=== PATIENT | male | born 1985 | race Caucasian/White ===

== ENCOUNTER 2017-09-17 10:58 | Emergency (ER) | payer MEDICAID ==
[~2017-09-17] VITALS: Ht 165.1 cm; Wt 123.0 kg
[~2017-09-17 10:58] MED LIST: MELO-100 PO; NITR100C6 PO; NO HOME MEDS; PANT-47 PO
[2017-09-17 11:10] VITALS: BP 134/91
[2017-09-17] MEDS: ibuprofen tablet 400 MG TABLET PO ONE (12:07)
[2017-09-17] MEDS: HYDROcodone/acetaminophen 5mg/325mg tablet PO ONE (12:08)
[2017-09-17] MEDS: ipratropium/albuterol 3ml nebule NEB ONE (12:24)
[2017-09-17] MEDS ORDERED: AZIT-57 PO (12:46)
[2017-09-17] MEDS ORDERED: DICL100G15 TOP (12:46)
[2017-09-17] MEDS ORDERED: CYCL-1 PO (12:46)
[2017-09-17] MEDS ORDERED: PRED50TA PO (12:46)
== END 2017-09-17 12:53 | disposition home or self-care (01) ==
LOC: ER 10:59
DX: S29.012A Strain of muscle and tendon of back wall of thorax, initial encounter (principal); J45.909 Unspecified asthma, uncomplicated; K21.9 Gastro-esophageal reflux disease without esophagitis; Z98.890 Other specified postprocedural states; F17.200 Nicotine dependence, unspecified, uncomplicated; X58.XXXA Exposure to other specified factors, initial encounter; Y93.89 Activity, other specified; Y92.89 Other specified places as the place of occurrence of the external cause; Y99.8 Other external cause status
CPT/HCPCS: 71100; 94640; 94760; 99284

== ENCOUNTER 2018-12-17 22:37 | Emergency (ER) | payer MEDICAID, OTHER ==
[~2018-12-17] VITALS: Ht 165.1 cm; Wt 132.0 kg
[~2018-12-17 22:37] MED LIST changes: +CYCL-1 PO; +DICL100G15 TOP; +PRED50TA PO
[2018-12-17] MEDS ORDERED: methylPREDNISolone sod succ 125mg/2ml vial IV ONE (23:00)
[2018-12-17] MEDS ORDERED: ipratropium/albuterol 3ml nebule NEB ONE (23:00)
[2018-12-17] MEDS ORDERED: normal saline 1000ml 1,000 ML IV ONE (23:00)
[2018-12-17] MEDS ORDERED: LORazepam 2 mg/ml vial IV ONE (23:10)
[2018-12-17] MEDS ORDERED: aspirin 325mg tablet PO ONE (23:10)
[2018-12-17 23:18] LABS: BASOPHILS # (AUTO) 0.1 X10'3 (0-0.2); BASOPHILS % (AUTO) 0.6 % (0-1); EOSINOPHILS # (AUTO) 0.2 X10'3 (0-0.9); EOSINOPHILS % (AUTO) 1.4 % (0-6); HEMATOCRIT 49.6 % (42.0-52.0); HEMOGLOBIN 17.1 g/dl (14.0-17.9); LYMPHOCYTES % (AUTO) 25.5 % (21-51); MEAN CORPUSCULAR HEMOGLOBIN 33.7 PG (27.0-31.0); MEAN CORPUSCULAR HGB CONC 34.5 g/dL (33.0-36.5); MEAN CORPUSCULAR VOLUME 97.5 FL (78-98); MEAN PLATELET VOLUME 7.4 FL (7.4-10.4); MONOCYTES # (AUTO) 0.9 X10'3 (0-0.9); MONOCYTES % (AUTO) 7.3 % (2-12); NEUTROPHILS # (AUTO) 7.7 X10'3 (1.8-7.7); NEUTROPHILS % (AUTO) 65.2 % (42-75); PLATELET COUNT 318 X10'3 (140-440); RED BLOOD COUNT 5.09 X10'6 (4.70-6.10); RED CELL DISTRIBUTION WIDTH 13.7 % (11.5-14.5); WHITE BLOOD COUNT 11.9 X10'3 (4.5-11.0)
[2018-12-17 23:37] LABS: ALANINE AMINOTRANSFERASE 48 U/L (12-78); ALBUMIN 3.7 G/DL (3.4-5.0); ALBUMIN/GLOBULIN RATIO 0.9 (1.1-1.5); ALKALINE PHOSPHATASE 108 IU/L (46-116); ANION GAP 13 (8-16); ASPARTATE AMINO TRANSFERASE 39 U/L (10-37); BILIRUBIN,TOTAL 0.4 MG/DL (0.1-1.0); BLOOD UREA NITROGEN 12 MG/DL (7-18); BUN/CREATININE RATIO 10.2 (5.4-32.0); CALCIUM 9.3 MG/DL (8.5-10.1); CHLORIDE 103 MMOL/L (99-107); CREATININE 1.18 MG/DL (0.60-1.10); GLUCOSE 103 MG/DL (70-104); SODIUM 142 MMOL/L (135-145); TOTAL CARBON DIOXIDE 25.7 MMOL/L (24-32); TOTAL PROTEIN 7.8 G/DL (6.4-8.2); eGFR 72 ML/MIN
[2018-12-17 23:38] LABS: PARTIAL THROMBOPLASTIN TIME 28 SECONDS (22-32)
[2018-12-18] MEDS ORDERED: ATRIN INH (00:09)
[2018-12-18] MEDS ORDERED: ALBU8.5H8 INH (00:09)
[2018-12-18 00:45] VITALS: BP 122/71
== END 2018-12-18 00:47 | disposition home or self-care (01) ==
LOC: ER 22:38
DX: J45.901 Unspecified asthma with (acute) exacerbation (principal); R42 Dizziness and giddiness; K21.9 Gastro-esophageal reflux disease without esophagitis; Z90.49 Acquired absence of other specified parts of digestive tract; Z79.899 Other long term (current) drug therapy
CPT/HCPCS: 36415; 71045; 80053; 84484; 85025; 85610; 85730; 93005; 94640; 94760; 96361; 96374; 96375; 99284; J2060; J2930; J7030

== ENCOUNTER 2020-08-06 10:37 | Inpatient (IN) | payer MEDICAID ==
[~2020-08-06] VITALS: Ht 160 cm; Wt 164.2 kg
[~2020-08-06 10:37] MED LIST changes: +ALBU8.5H8 INH; +ATRIN INH; +IPRA3AMP31 IH
[2020-08-06 11:21] LABS: BASOPHILS % (AUTO) 0.3 % (0-1); EOSINOPHILS % (AUTO) 0.4 % (0-6); HEMATOCRIT 50.4 % (42.0-52.0); LYMPHOCYTES # (AUTO) 1.2 X10'3 (1.1-4.8); LYMPHOCYTES % (AUTO) 17.1 % (21-51); MEAN CORPUSCULAR HEMOGLOBIN 34.6 PG (27.0-31.0); MEAN CORPUSCULAR HGB CONC 33.6 g/dL (33.0-36.5); MEAN CORPUSCULAR VOLUME 102.7 FL (78-98); MONOCYTES # (AUTO) 0.7 X10'3 (0-0.9); NEUTROPHILS # (AUTO) 4.9 X10'3 (1.8-7.7); NEUTROPHILS % (AUTO) 72.2 % (42-75); PLATELET COUNT 251 X10'3 (140-440); RED BLOOD COUNT 4.91 X10'6 (4.70-6.10); WHITE BLOOD COUNT 6.8 X10'3 (4.5-11.0)
--- NOTE | 2020-08-06 11:36 | NUR ---
Pt reports having a negative COVID test on 07/31, no changes to his sx's since then
[2020-08-06 11:38] LABS: ALANINE AMINOTRANSFERASE 61 U/L (12-78); ALBUMIN 3.4 G/DL (3.4-5.0); ALBUMIN/GLOBULIN RATIO 0.8 (1.1-1.5); ALKALINE PHOSPHATASE 115 IU/L (46-116); ANION GAP 6 (8-16); ASPARTATE AMINO TRANSFERASE 74 U/L (10-37); BILIRUBIN,TOTAL 0.4 MG/DL (0.1-1.0); BLOOD UREA NITROGEN 9 MG/DL (7-18); BUN/CREATININE RATIO 8.7 (5.4-32.0); CALCIUM 8.7 MG/DL (8.5-10.1); CHLORIDE 104 MMOL/L (99-107); CREATININE 1.04 MG/DL (0.60-1.10); GLUCOSE 99 MG/DL (70-104); POTASSIUM 4.3 MMOL/L (3.5-5.1); SODIUM 148 MMOL/L (135-145); TOTAL PROTEIN 7.5 G/DL (6.4-8.2); eGFR 82 ML/MIN
[2020-08-06] MEDS ORDERED: albuterol 2.5 MG/3 ML nebule NEB ONE (11:40)
[2020-08-06] MEDS ORDERED: methylPREDNISolone sod succ 125mg/2ml vial IV ONE (11:40)
[2020-08-06 12:44] LABS: CLARITY,URINE CLEAR (Clear); COLOR,URINE YELLOW (Yellow); GLUCOSE, URINE NEGATIVE (Neg); KETONES,URINE NEGATIVE (Neg); LEUKOCYTE ESTERASE ,URINE NEGATIVE (Neg); NITRITES, URINE NEGATIVE (Neg); OCCULT BLOOD,URINE TRACE-LYSED (Neg); PH,URINE 6.5 (4.8-8.0); PROTEIN,URINE >=300 mg/dl (Neg)
--- NOTE | 2020-08-06 12:49 | NUR ---
PT BACK TO ROOM [address] SCAN. NOTED PRIOR TO CT SCAN, PT'S SPO2 WHILE SLEEPING WAS 77-85% ON RA. PT WAS AWAKENED, SAT AT SIDE OF BED TO GIVE URINE SAMPLE, SPO2 TO 93%. PT STATES THAT HE WEARS CPAP AT HOME. PT ALSO C/O BACK PAIN, PA NOTIFIED OF ALL THE ABOVE.
[2020-08-06 12:52] LABS: D-DIMER 0.35 MG/L FEU (0-0.50)
[2020-08-06] MEDS ORDERED: HYDROcodone/acetaminophen 5mg/325mg tablet PO ONE (12:55)
[2020-08-06 13:01] LABS: URINE AMPHETAMINE SCREEN NEGATIVE (Neg); URINE BARBITUATE SCREEN NEGATIVE (Neg); URINE BENZODIAZEPINES SCREEN NEGATIVE (Neg); URINE CANNABINOID SCREEN POSITIVE (Neg); URINE COCAINE SCREEN NEGATIVE (Neg); URINE METHADONE SCREEN NEGATIVE (Neg); URINE OPIATE SCREEN NEGATIVE (Neg); URINE PHENCYCLIDINE SCREEN NEGATIVE (Neg)
[2020-08-06 13:26] LABS: UA COLLECTION TYPE CLN CATCH MIDSTREAM
[2020-08-06 13:27] LABS: HYALINE CASTS 0-3 /LPF (NEGATIVE); MUCUS STRANDS MANY /LPF (Neg); SQUAMOUS EPITHELIAL CELL,UR FEW /LPF (FEW)
[2020-08-06 13:29] LABS: BACTERIA,URINE FEW /HPF (Neg); CAL OXALATE CRYSTALS FEW /HPF (NEGATIVE); RBC,URINE 0-2 /HPF (0-2); TRANSITIONAL EPI CELLS,URINE FEW /HPF; WBC,URINE 0-4 /HPF (0-4)
[2020-08-06] MEDS ORDERED: iohexol 350MG/ML 100ml bottle IV ONE (13:40)
[2020-08-06 14:01] LABS: ABG BASE EXCESS 4.1 mmol/L (-2.0-2.0); ABG HCO3 37.5 mmol/L (22.0-26.0); ABG PCO2 (T) 101.5 mmHg (35.0-48.0); ABG PO2 (T) 270.5 mmHg (75.0-100.0); ALLEN'S TEST POSITIVE; FLOW 13 L/min; FMetHb 0.3 % (0.0-1.5); FO2Hb 93.8 % (94-97); TOTAL HEMOGLOBIN 18.2 G/dl (14.0-18.0)
--- NOTE | 2020-08-06 14:43 | NUR ---
RT pg'ed to help transport pt to CT on bipap
[2020-08-06] MEDS ORDERED: furosemide 10 MG/1 ML 10ml inj IV ONE (15:05)
[2020-08-06 15:25] LABS: ABG BASE EXCESS 3.8 mmol/L (-2.0-2.0); ABG HCO3 36.2 mmol/L (22.0-26.0); ABG OXYGEN SATURATION 97.4 % (94-97); ABG PCO2 (T) 93.2 mmHg (35.0-48.0); ABG PO2 (T) 115.3 mmHg (75.0-100.0); ALLEN'S TEST POSITIVE; FCOHb 4.8 % (0.0-3.9); FMetHb 0.3 % (0.0-1.5); FO2Hb 92.4 % (94-97); RESPIRATORY RATE 22 b/min; TOTAL HEMOGLOBIN 17.7 G/dl (14.0-18.0)
--- NOTE | 2020-08-06 16:37 | NUR ---
PA notified of HR and BP
[2020-08-06] MEDS ORDERED: nitroGLYCERIN 0.4mg SUBLingual tab SL STA (16:45)
[2020-08-06] MEDS ORDERED: ALBU8HFA PO (17:11)
--- NOTE | 2020-08-06 17:48 | NUR ---
Family (mom and dad) updated per pt [phone]
[2020-08-06] MEDS ORDERED: acetaminophen 325mg tablet PO PRN ×2 (18:30)
[2020-08-06] MEDS ORDERED: magnesium 2GM in 50ml NS 50 ML IV PRN (18:30)
[2020-08-06] MEDS ORDERED: albuterol 2.5 MG/3 ML nebule NEB PRN ×2 (18:30)
[2020-08-06] MEDS ORDERED: ondansetron/PF 4mg/2ml inj IV PRN (18:30)
[2020-08-06] MEDS ORDERED: magnesium Cl slow-release 64mg tablet PO PRN (18:30)
[2020-08-06] MEDS ORDERED: magnesium 4gm in 100ml NS 100 ML IV PRN (18:30)
[2020-08-06] MEDS ORDERED: potassium Cl 20 mEq SR tablet PO PRN ×2 (18:30)
[2020-08-06] MEDS ORDERED: potassium Cl 40MEQ/1/2NS 520ml 520 ML IV PRN ×2 (18:30)
[2020-08-06] MEDS: K and/or MAG REPLACEMENT MC SCH (20:00)
[2020-08-06] MEDS: heparin, porcine 5000 units/ml vial SQ SCH (20:48)
[2020-08-06] MEDS: docusate sod 100mg capsule PO SCH (20:48)
[2020-08-06] MEDS ORDERED: thiamine 100mg/ml 2ml inj. IV ONE (22:35)
[2020-08-06] MEDS ORDERED: LORazepam 2 mg/ml vial IV PRN ×2 (22:35)
[2020-08-06] MEDS ORDERED: dextrose 50%-water 50ml dispensing syringe IV PRN (22:35)
[2020-08-06] MEDS ORDERED: haloperidol lactate 5mg/ml inj IM PRN (22:35)
--- NOTE | 2020-08-06 22:36 | NUR ---
RT AT BEDSIDE TO DO ABG
--- NOTE | 2020-08-06 22:45 | NUR ---
PT REPORTS DRINKING 1/5 WHISKEY PER DAY, HAS BEEN SLIGHTLY ANXIOUS. DR. CINTRON NOTIFIED. ORDERS FOR ETOH PROT GIVEN. PT MEDICATED PER PROTOCOL.
[2020-08-06 22:51] LABS: ABG BASE EXCESS 9.3 mmol/L (-2.0-2.0); ABG HCO3 37.9 mmol/L (22.0-26.0); ABG OXYGEN SATURATION 99.2 % (94-97); ABG PCO2 (T) 66.5 mmHg (35.0-48.0); ABG PO2 (T) 193.3 mmHg (75.0-100.0); ALLEN'S TEST POSITIVE; FCOHb 2.2 % (0.0-3.9); FMetHb 0.4 % (0.0-1.5); FO2Hb 96.6 % (94-97); RESPIRATORY RATE 24 b/min; TOTAL HEMOGLOBIN 17.5 G/dl (14.0-18.0)
--- NOTE | 2020-08-06 23:08 | NUR ---
Patient in room 3023A. I have received report from DIONISIO Buckley and had the opportunity to ask questions and assume patient care. Patient transferred by shawna from the ED. Ambulated to bed self. On 2L NC. Will continue to monitor throughout shift.
[2020-08-06 23:10] VITALS: BP 141/106
[2020-08-07 02:00] VITALS: BP 140/90
--- NOTE | 2020-08-07 04:01 | NUR ---
Unable to dart. Patient on bipap all night.
[2020-08-07 06:30] LABS: BASOPHILS % (AUTO) 0.1 % (0-1); EOSINOPHILS % (AUTO) 0 % (0-6); HEMATOCRIT 49.6 % (42.0-52.0); HEMOGLOBIN 16.6 g/dl (14.0-17.9); LYMPHOCYTES # (AUTO) 0.4 X10'3 (1.1-4.8); LYMPHOCYTES % (AUTO) 5.6 % (21-51); MEAN CORPUSCULAR HEMOGLOBIN 34.6 PG (27.0-31.0); MEAN CORPUSCULAR HGB CONC 33.4 g/dL (33.0-36.5); MEAN CORPUSCULAR VOLUME 103.6 FL (78-98); MEAN PLATELET VOLUME 7.3 FL (7.4-10.4); MONOCYTES # (AUTO) 0.7 X10'3 (0-0.9); MONOCYTES % (AUTO) 9.1 % (2-12); NEUTROPHILS # (AUTO) 6.6 X10'3 (1.8-7.7); NEUTROPHILS % (AUTO) 85.2 % (42-75); PLATELET COUNT 242 X10'3 (140-440); RED BLOOD COUNT 4.79 X10'6 (4.70-6.10); RED CELL DISTRIBUTION WIDTH 14.5 % (11.5-14.5); WHITE BLOOD COUNT 7.7 X10'3 (4.5-11.0)
--- NOTE | 2020-08-07 06:42 | NUR ---
Patient in room PCU 3023. I have received report from DIONISIO Nunez and had the opportunity to ask questions and assume patient care.
--- NOTE | 2020-08-07 06:48 | NUR ---
Problems reprioritized. Patient report given, questions answered & plan of care reviewed with DIONISIO Phillips. Medications administered as ordered, care plan followed. Call light and personal items within reach. Will continue to monitor.
[2020-08-07 06:57] LABS: ALBUMIN 3.2 G/DL (3.4-5.0); ANION GAP 5 (8-16); BLOOD UREA NITROGEN 13 MG/DL (7-18); BUN/CREATININE RATIO 15.3 (5.4-32.0); CALCIUM 8.8 MG/DL (8.5-10.1); CHLORIDE 101 MMOL/L (99-107); CREATININE 0.85 MG/DL (0.60-1.10); GLUCOSE 143 MG/DL (70-104); MAGNESIUM 1.9 MG/DL (1.5-2.4); POTASSIUM 4.2 MMOL/L (3.5-5.1); SODIUM 141 MMOL/L (135-145); TOTAL CARBON DIOXIDE 35.4 MMOL/L (24-32); eGFR > 90 ML/MIN
[2020-08-07 07:00] VITALS: BP 134/95
[2020-08-07] MEDS: K and/or MAG REPLACEMENT MC SCH ×2 (08:00→20:00)
[2020-08-07] MEDS: docusate sod 100mg capsule PO SCH ×2 (08:59→20:00)
[2020-08-07] MEDS: heparin, porcine 5000 units/ml vial SQ SCH ×2 (09:03→21:17)
[2020-08-07 11:00] VITALS: BP 113/73
[2020-08-07] MEDS ORDERED: furosemide 40mg/4ml inj IV ONE (11:55)
[2020-08-07] MEDS ORDERED: traMADol 50MG tablet PO PRN (11:55)
[2020-08-07] MEDS ORDERED: methylPREDNISolone sod succ 125mg/2ml vial IV ONE (11:55)
[2020-08-07] MEDS: albuterol 2.5 MG/3 ML nebule NEB SCH ×3 (14:51→23:54)
[2020-08-07 15:00] VITALS: BP 125/73
[2020-08-07 18:00] VITALS: BP 144/95
--- NOTE | 2020-08-07 18:00 | NUR ---
Patient in room PCU 3023. I have received report from JOSE J NICHOLE and had the opportunity to ask questions and assume patient care.
--- NOTE | 2020-08-07 18:52 | NUR ---
Problems reprioritized. Patient report given, questions answered & plan of care reviewed with DIONISIO Kaiser.
[2020-08-07] MEDS ORDERED: methylPREDNISolone sod succ 125mg/2ml vial IV SCH (20:00)
[2020-08-07] MEDS: furosemide 40mg/4ml inj IV SCH (21:16)
[2020-08-07 22:00] VITALS: BP 157/95
[2020-08-08 02:00] VITALS: BP 141/95
[2020-08-08] MEDS: albuterol 2.5 MG/3 ML nebule NEB SCH ×6 (02:53→23:36)
--- NOTE | 2020-08-08 03:00 | NUR ---
LAST BM PRIOR TO ADMIT Addendum: 08/08/20 at 0303 by Awilda Phillips RN Amended: Links added.
--- NOTE | 2020-08-08 06:45 | NUR ---
Problems reprioritized. Patient report given, questions answered & plan of care reviewed with DENG NICHOLE.
[2020-08-08 07:00] VITALS: BP 157/105
[2020-08-08 07:03] LABS: BASOPHILS % (AUTO) 0.2 % (0-1); EOSINOPHILS % (AUTO) 0 % (0-6); HEMATOCRIT 49.6 % (42.0-52.0); HEMOGLOBIN 16.8 g/dl (14.0-17.9); LYMPHOCYTES # (AUTO) 0.3 X10'3 (1.1-4.8); LYMPHOCYTES % (AUTO) 3.9 % (21-51); MEAN CORPUSCULAR HGB CONC 33.8 g/dL (33.0-36.5); MEAN CORPUSCULAR VOLUME 103.6 FL (78-98); MEAN PLATELET VOLUME 7.6 FL (7.4-10.4); MONOCYTES # (AUTO) 0.2 X10'3 (0-0.9); NEUTROPHILS # (AUTO) 7.5 X10'3 (1.8-7.7); NEUTROPHILS % (AUTO) 92.9 % (42-75); PLATELET COUNT 238 X10'3 (140-440); RED BLOOD COUNT 4.79 X10'6 (4.70-6.10); RED CELL DISTRIBUTION WIDTH 13.8 % (11.5-14.5); WHITE BLOOD COUNT 8.1 X10'3 (4.5-11.0)
[2020-08-08 07:18] LABS: ALBUMIN 3.3 G/DL (3.4-5.0); ANION GAP 3 (8-16); BLOOD UREA NITROGEN 19 MG/DL (7-18); BUN/CREATININE RATIO 23.5 (5.4-32.0); CALCIUM 9.3 MG/DL (8.5-10.1); CHLORIDE 100 MMOL/L (99-107); CREATININE 0.81 MG/DL (0.60-1.10); GLUCOSE 145 MG/DL (70-104); MAGNESIUM 2.2 MG/DL (1.5-2.4); POTASSIUM 4.7 MMOL/L (3.5-5.1); SODIUM 141 MMOL/L (135-145); TOTAL CARBON DIOXIDE 37.7 MMOL/L (24-32); eGFR > 90 ML/MIN
--- NOTE | 2020-08-08 07:27 | NUR ---
Rm 3023A, Donna. Patient is changing rooms could you please come move the Bipap to new room 3025B. Thanks
[2020-08-08] MEDS: docusate sod 100mg capsule PO SCH ×2 (08:00→19:44)
[2020-08-08] MEDS: K and/or MAG REPLACEMENT MC SCH ×2 (08:00→19:46)
[2020-08-08] MEDS: heparin, porcine 5000 units/ml vial SQ SCH ×2 (08:00→19:45)
[2020-08-08] MEDS: furosemide 40mg/4ml inj IV SCH ×2 (08:38→19:42)
[2020-08-08] MEDS: methylPREDNISolone sod succ 125mg/2ml vial IV SCH ×2 (08:39→19:45)
[2020-08-08 11:00] VITALS: BP 129/86
[2020-08-08] MEDS ORDERED: POTA20TA19 PO (12:31)
[2020-08-08] MEDS ORDERED: FURO-149 PO (12:31)
[2020-08-08] MEDS ORDERED: PRED20TA PO (12:33)
[2020-08-08] MEDS ORDERED: PANT40SU2 PO (12:46)
[2020-08-08] MEDS ORDERED: ALBU2.5V7 INH ×2 (12:47→12:48)
[2020-08-08] MEDS ORDERED: ALBU6.7H9 INH (12:50)
[2020-08-08 15:00] VITALS: BP 123/82
[2020-08-08 18:00] VITALS: BP 131/82
--- NOTE | 2020-08-08 18:47 | NUR ---
Patient in room PCU 3025. I have received report from Nicole NICHOLE and had the opportunity to ask questions and assume patient care.
[2020-08-08 22:00] VITALS: BP 139/79
[2020-08-09 02:00] VITALS: BP 147/93
[2020-08-09] MEDS: albuterol 2.5 MG/3 ML nebule NEB SCH ×3 (04:11→11:35)
--- NOTE | 2020-08-09 06:23 | NUR ---
Problems reprioritized. Patient report given, questions answered & plan of care reviewed with Nicole NICHOLE.
[2020-08-09 07:00] VITALS: BP 130/86
[2020-08-09 07:06] LABS: BASOPHILS % (AUTO) 0 % (0-1); EOSINOPHILS % (AUTO) 0 % (0-6); HEMATOCRIT 49.1 % (42.0-52.0); HEMOGLOBIN 16.5 g/dl (14.0-17.9); LYMPHOCYTES # (AUTO) 0.4 X10'3 (1.1-4.8); LYMPHOCYTES % (AUTO) 4.2 % (21-51); MEAN CORPUSCULAR HEMOGLOBIN 34.6 PG (27.0-31.0); MEAN CORPUSCULAR HGB CONC 33.6 g/dL (33.0-36.5); MEAN CORPUSCULAR VOLUME 103.1 FL (78-98); MEAN PLATELET VOLUME 7.7 FL (7.4-10.4); MONOCYTES # (AUTO) 0.7 X10'3 (0-0.9); MONOCYTES % (AUTO) 7.2 % (2-12); NEUTROPHILS # (AUTO) 8.4 X10'3 (1.8-7.7); NEUTROPHILS % (AUTO) 88.6 % (42-75); PLATELET COUNT 225 X10'3 (140-440); RED BLOOD COUNT 4.76 X10'6 (4.70-6.10); RED CELL DISTRIBUTION WIDTH 14.3 % (11.5-14.5); WHITE BLOOD COUNT 9.4 X10'3 (4.5-11.0)
[2020-08-09 07:10] LABS: ALBUMIN 3.4 G/DL (3.4-5.0); ANION GAP 5 (8-16); BLOOD UREA NITROGEN 19 MG/DL (7-18); BUN/CREATININE RATIO 23.5 (5.4-32.0); CALCIUM 9.2 MG/DL (8.5-10.1); CHLORIDE 101 MMOL/L (99-107); CREATININE 0.81 MG/DL (0.60-1.10); GLUCOSE 139 MG/DL (70-104); MAGNESIUM 2.5 MG/DL (1.5-2.4); SODIUM 144 MMOL/L (135-145); TOTAL CARBON DIOXIDE 38.5 MMOL/L (24-32); eGFR > 90 ML/MIN
[2020-08-09] MEDS: furosemide 40mg/4ml inj IV SCH (07:17)
[2020-08-09] MEDS: methylPREDNISolone sod succ 125mg/2ml vial IV SCH (07:17)
[2020-08-09] MEDS: heparin, porcine 5000 units/ml vial SQ SCH (08:00)
[2020-08-09] MEDS: K and/or MAG REPLACEMENT MC SCH (08:00)
[2020-08-09] MEDS: docusate sod 100mg capsule PO SCH (08:00)
--- NOTE | 2020-08-09 15:52 | NUR ---
Patient discharged at 1530 home. RX faxed to pharmacy, patient reviewed packet prior to signing, all belongings sent with patient, O@ and triology to be delivered today. PIV removed, tele off, patient walked down and left vias private vehicle.
== END 2020-08-09 15:29 | disposition home or self-care (01) | DRG 133 ==
LOC: ER 10:37 → ED HOLD 18:26 → PCU 3S 23:00
PROVIDERS: ADMIT Internal Medicine; ATTEND Internal Medicine
PROC: 5A09357 Assistance with Respiratory Ventilation, Less than 24 Consecutive Hours, Continuous Positive Airway Pressure (ICD-10-PCS; principal; 2020-08-06)
PROC: 5A09357 Assistance with Respiratory Ventilation, Less than 24 Consecutive Hours, Continuous Positive Airway Pressure (ICD-10-PCS; 2020-08-07)
PROC: 5A09357 Assistance with Respiratory Ventilation, Less than 24 Consecutive Hours, Continuous Positive Airway Pressure (ICD-10-PCS; 2020-08-08)
PROC: 5A09357 Assistance with Respiratory Ventilation, Less than 24 Consecutive Hours, Continuous Positive Airway Pressure (ICD-10-PCS; 2020-08-09)
DX: J96.02 Acute respiratory failure with hypercapnia (principal); F17.200 Nicotine dependence, unspecified, uncomplicated; K76.0 Fatty (change of) liver, not elsewhere classified; E66.2 Morbid (severe) obesity with alveolar hypoventilation; Z68.44 Body mass index [BMI] 60.0-69.9, adult; Z82.49 Family history of ischemic heart disease and other diseases of the circulatory system; Z90.49 Acquired absence of other specified parts of digestive tract
CPT/HCPCS: 36415; 36600; 71045; 71275; 74176; 76705; 80048; 80053; 80305; 81001; 82803; 83735; 83880; 84145; 84484; 85018; 85025; 85379; 87081; 87635; 93005; 93308; 94640; 94660; 94760; 96374; 99285; C9803; G0378; J1644; J1940; J2060; J2930; J3411; Q9967

== ENCOUNTER 2020-12-10 15:38 | Emergency (ER) | payer MEDICAID ==
[~2020-12-10] VITALS: Ht 165.1 cm; Wt 170.0 kg
[~2020-12-10 15:38] MED LIST changes: +ALBU2.5V7 INH; +ALBU6.7H9 INH; -ALBU8.5H8 INH; +ALBU8HFA PO; -ATRIN INH; -CYCL-1 PO; -DICL100G15 TOP; +FURO-149 PO; -IPRA3AMP31 IH; -MELO-100 PO; -NITR100C6 PO; -PANT-47 PO; +PANT40SU2 PO; -PRED50TA PO
[2020-12-10 17:03] LABS: BASOPHILS % (AUTO) 0.3 % (0-1); EOSINOPHILS # (AUTO) 0.1 X10'3 (0-0.9); EOSINOPHILS % (AUTO) 0.9 % (0-6); HEMATOCRIT 46.3 % (42.0-52.0); HEMOGLOBIN 15.8 g/dl (14.0-17.9); LYMPHOCYTES # (AUTO) 1.1 X10'3 (1.1-4.8); LYMPHOCYTES % (AUTO) 11.6 % (21-51); MEAN CORPUSCULAR HEMOGLOBIN 36.6 PG (27.0-31.0); MEAN CORPUSCULAR VOLUME 107.5 FL (78-98); MEAN PLATELET VOLUME 7.2 FL (7.4-10.4); MONOCYTES % (AUTO) 9.8 % (2-12); NEUTROPHILS # (AUTO) 7.6 X10'3 (1.8-7.7); NEUTROPHILS % (AUTO) 77.4 % (42-75); PLATELET COUNT 268 X10'3 (140-440); RED BLOOD COUNT 4.31 X10'6 (4.70-6.10); RED CELL DISTRIBUTION WIDTH 14.7 % (11.5-14.5); WHITE BLOOD COUNT 9.8 X10'3 (4.5-11.0)
[2020-12-10] MEDS ORDERED: predniSONE 20 mg tablet PO ONE (17:45)
[2020-12-10] MEDS ORDERED: ipratropium/albuterol 3ml nebule NEB ONE (17:45)
[2020-12-10 18:17] LABS: ALANINE AMINOTRANSFERASE 180 U/L (12-78); ALBUMIN 3.4 G/DL (3.4-5.0); ALBUMIN/GLOBULIN RATIO 0.9 (1.1-1.5); ALKALINE PHOSPHATASE 134 IU/L (46-116); ANION GAP 11 (8-16); ASPARTATE AMINO TRANSFERASE 260 U/L (10-37); BILIRUBIN,TOTAL 0.5 MG/DL (0.1-1.0); BLOOD UREA NITROGEN 6 MG/DL (7-18); BUN/CREATININE RATIO 7.1 (5.4-32.0); CALCIUM 9.2 MG/DL (8.5-10.1); CHLORIDE 102 MMOL/L (99-107); CREATININE 0.84 MG/DL (0.60-1.10); GLUCOSE 95 MG/DL (70-104); POTASSIUM 4.1 MMOL/L (3.5-5.1); SODIUM 141 MMOL/L (135-145); TOTAL CARBON DIOXIDE 27.7 MMOL/L (24-32); TOTAL PROTEIN 7.3 G/DL (6.4-8.2); eGFR > 90 ML/MIN
[2020-12-10 18:38] LABS: ABG BASE EXCESS 3.7 mmol/L (-2.0-2.0); ABG HCO3 28.6 mmol/L (22.0-26.0); ABG OXYGEN SATURATION 94.5 % (94-97); ABG PO2 (T) 68.6 mmHg (75.0-100.0); FO2Hb 90.7 % (94-97); TOTAL HEMOGLOBIN 15.6 G/dl (14.0-18.0)
[2020-12-10] MEDS ORDERED: FURO40TA4 PO (19:08)
[2020-12-10] MEDS ORDERED: PRED20TA PO (19:08)
[2020-12-10] MEDS ORDERED: furosemide 20MG tablet PO ONE (19:10)
[2020-12-10 19:25] VITALS: BP 138/75
== END 2020-12-10 19:30 | disposition home or self-care (01) ==
LOC: ER 15:39
DX: J44.1 Chronic obstructive pulmonary disease with (acute) exacerbation (principal); Z20.822 Contact with and (suspected) exposure to COVID-19; E87.70 Fluid overload, unspecified; R74.01 Elevation of levels of liver transaminase levels; K21.9 Gastro-esophageal reflux disease without esophagitis; Z90.49 Acquired absence of other specified parts of digestive tract; Z98.890 Other specified postprocedural states; Z79.899 Other long term (current) drug therapy
CPT/HCPCS: 36415; 36600; 71045; 80053; 82803; 83880; 84484; 85018; 85025; 87635; 93005; 94640; 94760; 99285; C9803; J7512

== ENCOUNTER → 2021-03-26 | Emergency (ER) | payer MEDICAID ==
[~2021-03-26] VITALS: Ht 165.1 cm; Wt 174.0 kg
[~2021-03-26] MED LIST changes: +ALBU18HF2 IH; +PRED20TA PO; +albuterol 2.5 MG/3 ML nebule CONTNEB PRN; +methylPREDNISolone sod succ 125mg/2ml vial IV ONE; +normal saline 1000ML IV soln IVB ONE
[2021-03-26 15:30] LABS: BASOPHILS % (AUTO) 0.3 % (0-1); EOSINOPHILS # (AUTO) 0.2 X10'3 (0-0.9); EOSINOPHILS % (AUTO) 1.7 % (0-6); HEMOGLOBIN 15.7 g/dl (14.0-17.9); LYMPHOCYTES # (AUTO) 1.8 X10'3 (1.1-4.8); LYMPHOCYTES % (AUTO) 15.9 % (21-51); MEAN CORPUSCULAR HEMOGLOBIN 36.4 PG (27.0-31.0); MEAN CORPUSCULAR HGB CONC 34.1 g/dL (33.0-36.5); MEAN CORPUSCULAR VOLUME 106.9 FL (78-98); MEAN PLATELET VOLUME 6.9 FL (7.4-10.4); MONOCYTES # (AUTO) 1.1 X10'3 (0-0.9); NEUTROPHILS # (AUTO) 8.1 X10'3 (1.8-7.7); NEUTROPHILS % (AUTO) 72.1 % (42-75); PLATELET COUNT 293 X10'3 (140-440); RED BLOOD COUNT 4.31 X10'6 (4.70-6.10); RED CELL DISTRIBUTION WIDTH 14.2 % (11.5-14.5); WHITE BLOOD COUNT 11.2 X10'3 (4.5-11.0)
[2021-03-26 15:46] LABS: ALANINE AMINOTRANSFERASE 139 U/L (12-78); ALBUMIN 3.5 G/DL (3.4-5.0); ALBUMIN/GLOBULIN RATIO 0.9 (1.1-1.5); ALKALINE PHOSPHATASE 131 IU/L (46-116); ANION GAP 11 (8-16); ASPARTATE AMINO TRANSFERASE 313 U/L (10-37); BILIRUBIN,TOTAL 0.5 MG/DL (0.1-1.0); BLOOD UREA NITROGEN 8 MG/DL (7-18); BUN/CREATININE RATIO 10.5 (5.4-32.0); CALCIUM 8.6 MG/DL (8.5-10.1); CHLORIDE 100 MMOL/L (99-107); CREATININE 0.76 MG/DL (0.60-1.10); GLUCOSE 110 MG/DL (70-104); POTASSIUM 3.2 MMOL/L (3.5-5.1); SODIUM 141 MMOL/L (135-145); TOTAL CARBON DIOXIDE 30.5 MMOL/L (24-32); TOTAL PROTEIN 7.6 G/DL (6.4-8.2); eGFR > 90 ML/MIN
[2021-03-26 15:56] LABS: ETHANOL 0.321 GM/DL (0.0-0.010)
[2021-03-26 18:30] VITALS: BP 146/101
== END | disposition home or self-care (01) ==
LOC: ER 14:51
DX: J45.901 Unspecified asthma with (acute) exacerbation (principal); Z20.822 Contact with and (suspected) exposure to COVID-19; F10.120 Alcohol abuse with intoxication, uncomplicated; K21.9 Gastro-esophageal reflux disease without esophagitis; Z90.49 Acquired absence of other specified parts of digestive tract; Z98.890 Other specified postprocedural states; Z72.89 Other problems related to lifestyle; Z79.899 Other long term (current) drug therapy; R74.01 Elevation of levels of liver transaminase levels; E66.2 Morbid (severe) obesity with alveolar hypoventilation; Z68.44 Body mass index [BMI] 60.0-69.9, adult; Y90.8 Blood alcohol level of 240 mg/100 ml or more
CPT/HCPCS: 36415; 71045; 80053; 80320; 83880; 84484; 85025; 87635; 93005; 94644; 96361; 96374; 99285; C9803; J2930; J7030; 94640; 94760; A7015

== ENCOUNTER 2021-08-07 14:25 | Emergency (ER) | payer MEDICAID ==
[~2021-08-07] VITALS: Ht 165.1 cm; Wt 147.7 kg
[~2021-08-07 14:25] MED LIST changes: -PRED20TA PO; -albuterol 2.5 MG/3 ML nebule CONTNEB PRN; -methylPREDNISolone sod succ 125mg/2ml vial IV ONE; -normal saline 1000ML IV soln IVB ONE
[2021-08-07] MEDS ORDERED: aspirin 81mg tab.chew PO ONE (14:30)
[2021-08-07 14:47] LABS: BASOPHILS % (AUTO) 0.4 % (0-1); EOSINOPHILS % (AUTO) 0.2 % (0-6); HEMATOCRIT 53.3 % (42.0-52.0); HEMOGLOBIN 17.9 g/dl (14.0-17.9); LYMPHOCYTES # (AUTO) 0.9 X10'3 (1.1-4.8); LYMPHOCYTES % (AUTO) 9.1 % (21-51); MEAN CORPUSCULAR HEMOGLOBIN 33.9 PG (27.0-31.0); MEAN CORPUSCULAR HGB CONC 33.6 g/dL (33.0-36.5); MEAN PLATELET VOLUME 7.3 FL (7.4-10.4); MONOCYTES # (AUTO) 0.7 X10'3 (0-0.9); NEUTROPHILS # (AUTO) 7.9 X10'3 (1.8-7.7); NEUTROPHILS % (AUTO) 83.3 % (42-75); PLATELET COUNT 263 X10'3 (140-440); RED BLOOD COUNT 5.28 X10'6 (4.70-6.10); RED CELL DISTRIBUTION WIDTH 15.5 % (11.5-14.5); WHITE BLOOD COUNT 9.5 X10'3 (4.5-11.0)
[2021-08-07 15:03] LABS: ALANINE AMINOTRANSFERASE 147 U/L (12-78); ALBUMIN 3.6 G/DL (3.4-5.0); ALBUMIN/GLOBULIN RATIO 0.9 (1.1-1.5); ALKALINE PHOSPHATASE 162 IU/L (46-116); ANION GAP 13 (8-16); ASPARTATE AMINO TRANSFERASE 241 U/L (10-37); BILIRUBIN,TOTAL 0.6 MG/DL (0.1-1.0); BLOOD UREA NITROGEN 8 MG/DL (7-18); BUN/CREATININE RATIO 10.5 (5.4-32.0); CALCIUM 9.2 MG/DL (8.5-10.1); CHLORIDE 103 MMOL/L (99-107); CREATININE 0.76 MG/DL (0.60-1.10); GLUCOSE 94 MG/DL (70-104); POTASSIUM 3.4 MMOL/L (3.5-5.1); SODIUM 142 MMOL/L (135-145); TOTAL CARBON DIOXIDE 25.9 MMOL/L (24-32); TOTAL PROTEIN 7.7 G/DL (6.4-8.2); eGFR > 90 ML/MIN
[2021-08-07 15:19] LABS: D-DIMER 0.78 MG/L FEU (0-0.50)
[2021-08-07] MEDS ORDERED: iohexol 350MG/ML 100ml bottle IV ONE (16:14)
[2021-08-07] MEDS ORDERED: LORazepam 2 mg/ml vial IV ONE (16:40)
--- NOTE | 2021-08-07 16:51 | NUR ---
ANKUSH SOLER AWARE. CIWA SCORE 32.
[2021-08-07] MEDS ORDERED: ipratropium/albuterol 3ml nebule NEB PRN (17:40)
[2021-08-07] MEDS ORDERED: methylPREDNISolone sod succ 125mg/2ml vial IV ONE (17:40)
--- NOTE | 2021-08-07 18:20 | NUR ---
PT AMBULATORY TO BATHROOM WITHOUT ASSIST. TOLERATED WELL.
[2021-08-07] MEDS ORDERED: PRED20TA PO (18:30)
--- NOTE | 2021-08-07 18:31 | NUR ---
ASSUMED CARE OF PT. RT HAS BEEN PAGED FOR URBAN TX PRIOR TO DISCHARGE
--- NOTE | 2021-08-07 19:30 | NUR ---
RT AT BEDSIDE
[2021-08-07 19:40] VITALS: BP 159/104
--- NOTE | 2021-08-07 19:40 | NUR ---
Pt given and understands d/c instructions. IV d/c'd, catheter was intact. Ambulatory with a steady gait.
== END 2021-08-07 19:40 | disposition home or self-care (01) ==
LOC: ER 14:26
DX: R07.89 Other chest pain (principal); Z20.822 Contact with and (suspected) exposure to COVID-19; F10.10 Alcohol abuse, uncomplicated; R74.01 Elevation of levels of liver transaminase levels; J45.909 Unspecified asthma, uncomplicated; K21.9 Gastro-esophageal reflux disease without esophagitis; F31.9 Bipolar disorder, unspecified; Z90.89 Acquired absence of other organs; Z98.890 Other specified postprocedural states; Z72.89 Other problems related to lifestyle; Z79.899 Other long term (current) drug therapy; Y90.9 Presence of alcohol in blood, level not specified
CPT/HCPCS: 36415; 71045; 71275; 80053; 83880; 84484; 85025; 85379; 87635; 93005; 94640; 96374; 96375; 99285; C9803; J2060; J2930; Q9967; 94760

== ENCOUNTER 2021-12-13 18:04 | Emergency (ER) | payer MEDICAID ==
[~2021-12-13] VITALS: Ht 162.6 cm; Wt 147.7 kg
[2021-12-13 18:45] LABS: BASOPHILS % (AUTO) 0.5 % (0-1); EOSINOPHILS % (AUTO) 0.5 % (0-6); HEMATOCRIT 49.5 % (42.0-52.0); HEMOGLOBIN 17.2 g/dl (14.0-17.9); LYMPHOCYTES # (AUTO) 1.8 X10'3 (1.1-4.8); LYMPHOCYTES % (AUTO) 21.8 % (21-51); MEAN CORPUSCULAR HEMOGLOBIN 36.2 PG (27.0-31.0); MEAN CORPUSCULAR HGB CONC 34.7 g/dL (33.0-36.5); MEAN CORPUSCULAR VOLUME 104.2 FL (78-98); MEAN PLATELET VOLUME 7.5 FL (7.4-10.4); MONOCYTES % (AUTO) 11.6 % (2-12); NEUTROPHILS # (AUTO) 5.6 X10'3 (1.8-7.7); NEUTROPHILS % (AUTO) 65.6 % (42-75); PLATELET COUNT 254 X10'3 (140-440); RED BLOOD COUNT 4.75 X10'6 (4.70-6.10); RED CELL DISTRIBUTION WIDTH 14.5 % (11.5-14.5); WHITE BLOOD COUNT 8.5 X10'3 (4.5-11.0)
[2021-12-13 19:04] LABS: ALANINE AMINOTRANSFERASE 160 U/L (12-78); ALBUMIN 3.4 G/DL (3.4-5.0); ALBUMIN/GLOBULIN RATIO 0.8 (1.1-1.5); ALKALINE PHOSPHATASE 157 IU/L (46-116); ANION GAP 13 (8-16); ASPARTATE AMINO TRANSFERASE 145 U/L (10-37); BILIRUBIN,TOTAL 1.7 MG/DL (0.1-1.0); BLOOD UREA NITROGEN 12 MG/DL (7-18); BUN/CREATININE RATIO 12.8 (5.4-32.0); CALCIUM 9.2 MG/DL (8.5-10.1); CHLORIDE 99 MMOL/L (99-107); CREATININE 0.94 MG/DL (0.60-1.10); GLUCOSE 112 MG/DL (70-104); POTASSIUM 3.1 MMOL/L (3.5-5.1); SODIUM 139 MMOL/L (135-145); TOTAL CARBON DIOXIDE 26.6 MMOL/L (24-32); TOTAL PROTEIN 7.6 G/DL (6.4-8.2); eGFR > 90 ML/MIN
[2021-12-13] MEDS ORDERED: ONDA4TAB12 PO (21:10)
[2021-12-13 21:45] VITALS: BP 152/78
== END 2021-12-13 21:49 | disposition home or self-care (01) ==
LOC: ER 18:06
DX: R07.89 Other chest pain (principal); R11.2 Nausea with vomiting, unspecified; R42 Dizziness and giddiness; J45.909 Unspecified asthma, uncomplicated; K21.9 Gastro-esophageal reflux disease without esophagitis; F17.210 Nicotine dependence, cigarettes, uncomplicated; Z72.89 Other problems related to lifestyle; Z90.49 Acquired absence of other specified parts of digestive tract; Z98.890 Other specified postprocedural states; Z79.899 Other long term (current) drug therapy
CPT/HCPCS: 36415; 71045; 80053; 83880; 84484; 85025; 93005; 99285

== ENCOUNTER 2023-12-20 11:28 | Emergency (ER) | payer MEDICAID ==
[~2023-12-20] VITALS: Ht 165.1 cm; Wt 140.9 kg
[~2023-12-20 11:28] MED LIST changes: +ALBU6.7H14 INH; -ALBU6.7H9 INH; +ONDA4TAB12 PO
[2023-12-20 11:43] LABS: BASOPHILS # (AUTO) 0.1 X10'3 (0-0.2); BASOPHILS % (AUTO) 0.8 % (0-1); EOSINOPHILS # (AUTO) 0.2 X10'3 (0-0.9); EOSINOPHILS % (AUTO) 1.6 % (0-6); HEMATOCRIT 41.4 % (42.0-52.0); LYMPHOCYTES # (AUTO) 1.8 X10'3 (1.1-4.8); LYMPHOCYTES % (AUTO) 16.2 % (21-51); MEAN CORPUSCULAR HEMOGLOBIN 34.1 PG (27.0-31.0); MEAN CORPUSCULAR HGB CONC 33.8 g/dL (33.0-36.5); MEAN PLATELET VOLUME 6.9 FL (7.4-10.4); MONOCYTES % (AUTO) 8.5 % (2-12); NEUTROPHILS # (AUTO) 8.3 X10'3 (1.8-7.7); NEUTROPHILS % (AUTO) 72.9 % (42-75); PLATELET COUNT 273 X10'3 (140-440); RED CELL DISTRIBUTION WIDTH 15.1 % (11.5-14.5); WHITE BLOOD COUNT 11.4 X10'3 (4.5-11.0)
[2023-12-20 12:01] LABS: ALANINE AMINOTRANSFERASE 18 U/L (12-78); ALBUMIN 3.6 G/DL (3.4-5.0); ALKALINE PHOSPHATASE 65 IU/L (46-116); ANION GAP 4 (8-16); ASPARTATE AMINO TRANSFERASE 20 U/L (10-37); BILIRUBIN,TOTAL 0.5 MG/DL (0.1-1.0); BLOOD UREA NITROGEN 13 MG/DL (7-18); BUN/CREATININE RATIO 14.8 (10.0-20.0); CALCIUM 8.9 MG/DL (8.5-10.1); CHLORIDE 102 MMOL/L (99-107); CREATININE 0.88 MG/DL (0.60-1.10); GLUCOSE 93 MG/DL (70-104); POTASSIUM 4.3 MMOL/L (3.5-5.1); SODIUM 140 MMOL/L (135-145); TOTAL CARBON DIOXIDE 34.4 MMOL/L (24-32); TOTAL PROTEIN 7.2 G/DL (6.4-8.2); eGFR > 90 ML/MIN
[2023-12-20 12:09] LABS: PRO BRAIN NATRIURETIC PEPTIDE < 30 PG/ML (0-125)
[2023-12-20 12:19] VITALS: TEMP 98.9
[2023-12-20] MEDS ORDERED: ketorolac trometh. 30mg/ml inj. IV ONE (14:35)
[2023-12-20 14:57] VITALS: PULSE 109; RESP 19; O2SAT 98
[2023-12-20] MEDS: ipratropium/albuterol 3ml nebule NEB ONE (14:57)
[2023-12-20 15:04] VITALS: PULSE 99; RESP 19; O2SAT 98
[2023-12-20] MEDS ORDERED: iohexol 350MG/ML 100ml bottle IV ONE (15:12)
[2023-12-20] MEDS: normal saline 1000ML IV soln IVB ONE (15:57)
[2023-12-20] MEDS: acetaminophen 1,000mg/100ml IV 100 ML IV STA (16:20)
[2023-12-20] MEDS ORDERED: ALBU90AE INH (17:26)
[2023-12-20] MEDS ORDERED: PRED20TA PO (17:26)
[2023-12-20] MEDS: methylPREDNISolone sod succ 125mg/2ml vial IV ONE (17:43)
[2023-12-20 18:03] VITALS: BP 135/93; PULSE 93; RESP 16; O2SAT 95
== END 2023-12-20 18:08 | disposition home or self-care (01) ==
LOC: ER 11:29
DX: R07.89 Other chest pain (principal); J45.909 Unspecified asthma, uncomplicated; K21.9 Gastro-esophageal reflux disease without esophagitis; Z79.899 Other long term (current) drug therapy; Z98.890 Other specified postprocedural states
CPT/HCPCS: 36415; 71045; 71275; 80053; 83880; 84484; 85025; 93005; 94640; 96374; 96375; 99285; J0131; J2930; J3490; J7030; Q9967; 94760; A4615

== ENCOUNTER 2024-01-12 12:34 | Emergency (ER) | payer MEDICAID ==
[~2024-01-12] VITALS: Ht 165.1 cm; Wt 140.0 kg
[~2024-01-12 12:34] MED LIST changes: +ALBU90AE INH; +PRED20TA PO
[2024-01-12 13:00] LABS: BASOPHILS # (AUTO) 0.1 X10'3 (0-0.2); BASOPHILS % (AUTO) 0.5 % (0-1); EOSINOPHILS # (AUTO) 0.2 X10'3 (0-0.9); EOSINOPHILS % (AUTO) 1.1 % (0-6); HEMATOCRIT 41.6 % (42.0-52.0); HEMOGLOBIN 13.7 g/dl (14.0-17.9); LYMPHOCYTES # (AUTO) 1.4 X10'3 (1.1-4.8); LYMPHOCYTES % (AUTO) 6.8 % (21-51); MEAN CORPUSCULAR HEMOGLOBIN 33.3 PG (27.0-31.0); MEAN CORPUSCULAR HGB CONC 33.1 g/dL (33.0-36.5); MEAN CORPUSCULAR VOLUME 100.5 FL (78-98); MEAN PLATELET VOLUME 6.9 FL (7.4-10.4); MONOCYTES # (AUTO) 1.4 X10'3 (0-0.9); MONOCYTES % (AUTO) 6.8 % (2-12); NEUTROPHILS # (AUTO) 17.5 X10'3 (1.8-7.7); NEUTROPHILS % (AUTO) 84.8 % (42-75); PLATELET COUNT 302 X10'3 (140-440); RED BLOOD COUNT 4.13 X10'6 (4.70-6.10); RED CELL DISTRIBUTION WIDTH 14.8 % (11.5-14.5); WHITE BLOOD COUNT 20.6 X10'3 (4.5-11.0)
[2024-01-12 13:09] LABS: ALBUMIN 3.1 G/DL (3.4-5.0); ANION GAP 3 (8-16); BLOOD UREA NITROGEN 16 MG/DL (7-18); BUN/CREATININE RATIO 16.5 (10.0-20.0); CALCIUM 9.2 MG/DL (8.5-10.1); CHLORIDE 100 MMOL/L (99-107); CREATININE 0.97 MG/DL (0.60-1.10); GLUCOSE 121 MG/DL (70-104); SODIUM 137 MMOL/L (135-145); TOTAL CARBON DIOXIDE 33.7 MMOL/L (24-32); eCRCL 91 ML/MIN; eGFR 87 ML/MIN
[2024-01-12] MEDS: normal saline 1000ML IV soln IVB ONE (13:13)
[2024-01-12] MEDS: methylPREDNISolone sod succ 125mg/2ml vial IV ONE (13:13)
[2024-01-12 13:43] VITALS: BP 135/73; TEMP 98.3
[2024-01-12] MEDS: albuterol 2.5 MG/3 ML nebule CONTNEB PRN (14:49)
[2024-01-12 14:51] VITALS: PULSE 107; RESP 20; O2SAT 92
[2024-01-12] MEDS ORDERED: AZIT250T3 PO (15:33)
[2024-01-12] MEDS ORDERED: PRED20TA PO (15:33)
[2024-01-12] MEDS ORDERED: ALBU8HFA PO (15:33)
[2024-01-12] MEDS: azithromycin 250mg tablet PO ONE (16:14)
== END 2024-01-12 16:17 | disposition home or self-care (01) ==
LOC: ER 12:35
DX: J45.901 Unspecified asthma with (acute) exacerbation (principal); K21.9 Gastro-esophageal reflux disease without esophagitis; Z98.890 Other specified postprocedural states; Z79.2 Long term (current) use of antibiotics; Z79.899 Other long term (current) drug therapy
CPT/HCPCS: 36415; 71045; 80048; 84484; 85025; 93005; 94640; 94644; 96361; 96374; 99291; J2919; J7030; 94760; A7015